=== PATIENT | female | born 1950 | race Caucasian/White ===

== ENCOUNTER → 2016-07-06 | Outpatient (CLI) | payer MEDICARE ==
--- NOTE | 2016-07-08 11:58 | MM ---
Reason for exam: screening (asymptomatic). Last mammogram was performed 7 years and 10 months ago. History: Patient is postmenopausal. Family history of breast cancer in mother at age 73. Excisional biopsy of the left breast. Took estrogen for 6 years 6 months beginning at age 51. Physical Findings: A clinical breast exam by your physician is recommended on an annual basis and results should be correlated with mammographic findings. MG 3D Screening Mammo W/Cad Bilateral CC and MLO view(s) were taken. Prior study comparison: September 18, 2008, bilateral diagnostic digital mammog. March 23, 2004, right breast special view mammogram. The breast tissue is heterogeneously dense. This may lower the sensitivity of mammography. No significant changes when compared with prior studies. ASSESSMENT: Negative, BI-RAD 1 RECOMMENDATION: Routine screening mammogram of both breasts in 1 year.
== END | disposition home or self-care (01) ==
LOC: RADMAMWWP 13:32
PROVIDERS: ATTEND Family Medicine
DX: Z12.31 Encounter for screening mammogram for malignant neoplasm of breast (principal)
CPT/HCPCS: 77063; G0202

== ENCOUNTER 2017-05-28 08:55 | Inpatient (IN) | payer MEDICARE ==
[2017-05-28] MEDS ORDERED: RX INFO: IV CONTRAST WAS GIVEN 1 EACH MISC MISCELLANE PRN (09:35)
[2017-05-28] MEDS ORDERED: SODIUM CHLORIDE 0.9% 1,000 ML IV STA (09:35)
[2017-05-28 09:49] LABS: Basophils % (A) 0 %; Eosinophils # (A) 0.1 k/uL (0-0.7); Eosinophils % (A) 1 %; HCT 39.5 % (34.0-46.0); HGB 13.1 gm/dL (11.4-16.0); Lymphocytes # (A) 0.7 k/uL (1.0-4.8); Lymphocytes % (A) 5 %; MCH 29.2 pg (25.0-35.0); MCHC 33.2 g/dL (31.0-37.0); MCV 88.1 fL (80.0-100.0); Mean Platelet Volume 7.6; Monocytes # (A) 0.6 k/uL (0-1.0); Monocytes % (A) 4 %; Neutrophils # (A) 13.2 k/uL (1.3-7.7); Neutrophils % (A) 90 %; Platelet Count 398 k/uL (150-450); RBC 4.49 m/uL (3.80-5.40); RDW 12.5 % (11.5-15.5); WBC 14.8 k/uL (3.8-10.6)
[2017-05-28 10:01] LABS: Albumin 4.1 g/dL (3.5-5.0); Calcium 9.8 mg/dL (8.4-10.2); Total Bilirubin 0.7 mg/dL (0.2-1.3); Total Protein 7.1 g/dL (6.3-8.2)
--- NOTE | 2017-05-28 10:07 | ED ---
General Adult HPI - General Source: patient, RN notes reviewed Mode of arrival: ambulatory Limitations: no limitations <Charli Cooper - Last Filed: 05/28/17 13:03> <Ridge Amaya - Last Filed: 05/28/17 13:18> - General Chief complaint: Nausea/Vomiting/Diarrhea Stated complaint: diarrhea x 4 days Time Seen by Provider: 05/28/17 09:26 - History of Present Illness Initial comments: Patient 66-year-old female who presents emergency room today with a chief complaint of increased abdominal pain with diarrhea over the last 3 days. Patient states his symptoms started about 3 days ago not feeling well. Feeling somewhat weak while she was at her granddaughter's volWorkableball game. She states that the following day she began having increased diarrhea with some symptoms of nausea. She states that multiple vaulted diarrhea over the last 3 days. Does admit that she sees some blood on the toilet paper when she wipes. Denies any blood mixed into the stool. States very loose. Does admit feeling nauseated but no vomiting. Does admit to abdominal pain greater on the left lower side that seems to come and go in waves. Denies any other complaints or symptoms. Patient denies any recent fever, chills, shortness of breath, chest pain, numbness or tingling, dysuria or hematuria, constipation, headaches or visual changes, or any other complaints. (Charli Cooper) - Related Data Home Medications Medication Instructions Recorded Confirmed Ascomp With Codiene 1 tab PO BID PRN 05/28/17 05/28/17 Citalopram Hydrobromide [CeleXA] 20 mg PO DAILY 05/28/17 05/28/17 Hyoscyamine Sulfate [Levbid] 0.375 mg PO DAILY 05/28/17 05/28/17 Ibuprofen [Advil] 400 mg PO Q8HR PRN 05/28/17 05/28/17 SUMAtriptan SUCCINATE [Imitrex] 100 mg PO DAILY PRN 05/28/17 05/28/17 Simvastatin [Zocor] 40 mg PO HS 05/28/17 05/28/17 Topiramate [Topamax] 50 mg PO HS 05/28/17 05/28/17 amLODIPine BESYLATE/BENAZEPRIL 1 cap PO DAILY 05/28/17 05/28/17 [Lotrel 10-20 mg Capsule] Allergies Allergy/AdvReac Type Severity Reaction Status Date / Time No Known Allergies Allergy Verified 05/28/17 09:04 Review of Systems ROS Other: All systems not noted in ROS Statement are negative. <Charli Cooper - Last Filed: 05/28/17 13:03> ROS Other: All systems not noted in ROS Statement are negative. <Ridge Amaya - Last Filed: 05/28/17 13:18> ROS Statement: Those systems with pertinent positive or pertinent negative responses have been documented in the HPI. Past Medical History Additional Past Medical History / Comment(s): utis urosepsis History of Any Multi-Drug Resistant Organisms: None Reported Past Surgical History: Cholecystectomy Past Psychological History: No Psychological Hx Reported Smoking Status: Never smoker Past Alcohol Use History: None Reported Past Drug Use History: None Reported <Charli Cooper - Last Filed: 05/28/17 13:03> General Exam Limitations: no limitations <KennethCharli - Last Filed: 05/28/17 13:03> <Ridge Amaya - Last Filed: 05/28/17 13:18> - General Exam Comments Initial Comments: General: The patient is awake and alert, in no distress, and does not appear acutely ill. Eye: Pupils are equal, round and reactive to light, extra-ocular movements are intact. No nystagmus. There is normal conjunctiva bilaterally. No signs of icterus. Ears, nose, mouth and throat: There are moist mucous membranes and no oral lesions. Neck: The neck is supple, there is no tenderness or JVD. Cardiovascular: There is a regular rate and rhythm. No murmur, rub or gallop is appreciated. Respiratory: Lungs are clear to auscultation, respirations are non-labored, breath sounds are equal. No wheezes, stridor, rales, or rhonchi. Gastrointestinal: Abdomen soft on palpation per patient does have tenderness both left upper and lower quadrants. No rebound tenderness. Left sided CVA tenderness. No guarding. Musculoskeletal: Normal ROM, no tenderness. Strength 5/5. Sensation intact. Pulses equal bilaterally 2+. Neurological: A&O x 3. CN II-XII intact, There are no obvious motor or sensory deficits. Coordination appears grossly intact. Speech is normal. Skin: Skin is warm and dry and no rashes or lesions are noted. Psychiatric: Cooperative, appropriate mood & affect, normal judgment. (Charli Cooper) Course <Charli Cooper - Last Filed: 05/28/17 13:03> <Ridge Amaya - Last Filed: 05/28/17 13:18> Vital Signs 05/28/17 05/28/17 09:00 12:24 Temperature 98.7 F 99.0 F Pulse Rate 102 H 96 Respiratory 18 18 Rate Blood Pressure 121/94 155/81 O2 Sat by Pulse 96 98 Oximetry - Reevaluation(s) Reevaluation #1: 05/28/17 13:16 PA supervision: I did personally do a [id number] evaluation the patient did discuss the findings with the patient and her . Patient does have some tenderness palpation over the right flank and lower quadrant area some minimal right CVA discomfort she did state pain however started on the left. She does have elevated white blood cell count and low-grade temperature she does have evidence of a UTI as well as hydronephrosis hydroureter any distal right ureter calculus. I did discuss case with Dr. Peña. Patient will be admitted for IV hydration and antibiotics pain control probable ureteral stent placement. (Ridge Amaya) Medical Decision Making - Lab Data Result diagrams: 05/28/17 09:20 05/28/17 09:20 <Charli Cooper - Last Filed: 05/28/17 13:03> - Lab Data Result diagrams: 05/28/17 09:20 05/28/17 09:20 <Ridge Amaya - Last Filed: 05/28/17 13:18> - Medical Decision Making Patient's labs been reviewed shows 14,000 white count. Urinalysis shows evidence for infection. Patient's CT of the abdomen and pelvis shows a somewhat chronically stone on the right side causing moderate hydronephrosis. Case discussed and seen by tenderness is Dr. Amaya who did discuss the case with urology production statistical clerk Dr. Peña who will admit the patient with plans to place a stent tomorrow morning. Patient will be made nothing by mouth after midnight. Patient and family at bedside are aware the plan. (Charli Cooper) - Lab Data Lab Results 05/28/17 05/28/17 05/28/17 Range/Units 09:20 09:20 09:20 WBC 14.8 H (3.8-10.6) k/uL RBC 4.49 (3.80-5.40) m/uL Hgb 13.1 (11.4-16.0) gm/dL Hct 39.5 (34.0-46.0) % MCV 88.1 (80.0-100.0) fL MCH 29.2 (25.0-35.0) pg MCHC 33.2 (31.0-37.0) g/dL RDW 12.5 (11.5-15.5) % Plt Count 398 (150-450) k/uL Neutrophils % 90 % Lymphocytes % 5 % Monocytes % 4 % Eosinophils % 1 % Basophils % 0 % Neutrophils # 13.2 H (1.3-7.7) k/uL Lymphocytes # 0.7 L (1.0-4.8) k/uL Monocytes # 0.6 (0-1.0) k/uL Eosinophils # 0.1 (0-0.7) k/uL Basophils # 0.0 (0-0.2) k/uL Sodium 141 (137-145) mmol/L Potassium 4.0 (3.5-5.1) mmol/L Chloride 104 (98-107) mmol/L Carbon Dioxide 17 L (22-30) mmol/L Anion Gap 20 mmol/L BUN 21 H (7-17) mg/dL Creatinine 1.00 (0.52-1.04) mg/dL Est GFR (CKD-EPI)AfAm 68 (>60 ml/min/1.73 sqM) Est GFR (CKD-EPI)NonAf 59 (>60 ml/min/1.73 sqM) Glucose 115 H (74-99) mg/dL Plasma Lactic Acid Dion 0.9 (0.7-2.0) mmol/L Calcium 9.8 (8.4-10.2) mg/dL Total Bilirubin 0.7 (0.2-1.3) mg/dL AST 24 (14-36) U/L ALT 29 (9-52) U/L Alkaline Phosphatase 90 (38-126) U/L Total Protein 7.1 (6.3-8.2) g/dL Albumin 4.1 (3.5-5.0) g/dL Amylase 37 (30-110) U/L Lipase 81 (23-300) U/L Urine Color Urine Appearance (Clear) Urine pH (5.0-8.0) Ur Specific [place] (1.001-1.035) Urine Protein (Negative) Urine Glucose (UA) (Negative) Urine Ketones (Negative) Urine Blood (Negative) Urine Nitrite (Negative) Urine Bilirubin (Negative) Urine Urobilinogen (<2.0) mg/dL Ur Leukocyte Esterase (Negative) Urine RBC (0-5) /hpf Urine WBC (0-5) /hpf Ur Squamous Epith Cells (0-4) /hpf Urine Bacteria (None) /hpf Urine Mucus (None) /hpf C. difficile (EIA) Intrp (Negative) 05/28/17 05/28/17 Range/Units 09:48 11:17 WBC (3.8-10.6) k/uL RBC (3.80-5.40) m/uL Hgb (11.4-16.0) gm/dL Hct (34.0-46.0) % MCV (80.0-100.0) fL MCH (25.0-35.0) pg MCHC (31.0-37.0) g/dL RDW (11.5-15.5) % Plt Count (150-450) k/uL Neutrophils % % Lymphocytes % % Monocytes % % Eosinophils % % Basophils % % Neutrophils # (1.3-7.7) k/uL Lymphocytes # (1.0-4.8) k/uL Monocytes # (0-1.0) k/uL Eosinophils # (0-0.7) k/uL Basophils # (0-0.2) k/uL Sodium (137-145) mmol/L Potassium (3.5-5.1) mmol/L Chloride (98-107) mmol/L Carbon Dioxide (22-30) mmol/L Anion Gap mmol/L BUN (7-17) mg/dL Creatinine (0.52-1.04) mg/dL Est GFR (CKD-EPI)AfAm (>60 ml/min/1.73 sqM) Est GFR (CKD-EPI)NonAf (>60 ml/min/1.73 sqM) Glucose (74-99) mg/dL Plasma Lactic Acid Dion (0.7-2.0) mmol/L Calcium (8.4-10.2) mg/dL Total Bilirubin (0.2-1.3) mg/dL AST (14-36) U/L ALT (9-52) U/L Alkaline Phosphatase (38-126) U/L Total Protein (6.3-8.2) g/dL Albumin (3.5-5.0) g/dL Amylase (30-110) U/L Lipase (23-300) U/L Urine Color Yellow Urine Appearance Cloudy H (Clear) Urine pH 6.0 (5.0-8.0) Ur Specific [place] 1.030 (1.001-1.035) Urine Protein 1+ H (Negative) Urine Glucose (UA) Negative (Negative) Urine Ketones 1+ H (Negative) Urine Blood Small H (Negative) Urine Nitrite Positive H (Negative) Urine Bilirubin Negative (Negative) Urine Urobilinogen <2.0 (<2.0) mg/dL Ur Leukocyte Esterase Large H (Negative) Urine RBC 4 (0-5) /hpf Urine WBC 143 H (0-5) /hpf Ur Squamous Epith Cells 1 (0-4) /hpf Urine Bacteria Rare H (None) /hpf Urine Mucus Rare H (None) /hpf C. difficile (EIA) Intrp Negative (Negative) Disposition Time of Disposition: 13:05 <Charli Cooper - Last Filed: 05/28/17 13:03> <Ridge Amaya - Last Filed: 05/28/17 13:18> Clinical Impression: Kidney stone, Hydronephrosis, UTI (urinary tract infection), Leukocytosis Disposition: ADMITTED IP TO THIS HOSP Condition: Stable Referrals: Ryan Petit MD [Primary Care Provider] - 1-2 days
--- NOTE | 2017-05-28 10:50 | CT ---
EXAMINATION TYPE: CT abdomen pelvis w con DATE OF EXAM: 05/28/2017 REFERENCE: NONE HISTORY: abdominal pain HISTORY: Upper abdominal pain with diarrhea REFERENCE: NONE CT DLP: 518.6 mGy Automated exposure control for dose reduction was used. TECHNIQUE: Helical acquisition through the abdomen and pelvis was obtained following the oral ingesti on of without Oral Contrast and following intravenous administration of 80 mL of Visipaque 320. The d jackie was reformatted in axial, coronal and sagittal projections. FINDINGS: There is minimal dependent atelectasis in the dependent portions of the lungs. There is no pleural or pericardial fluid. The heart is not enlarged. There is a small hiatal hernia. Within the abdomen, the liver and spleen are normal. The gallbladder is not identified. Both adrenal glands are normal. There is a 3 mm nonobstructing calculus in the anterior middle pole calyx of the left kidney. There i s hydronephrosis and hydroureter on the right. There is a 7.5 mm calculus in the lower right ureter j ust proximal to the trigone of the bladder. There is a 3.1 cm simple appearing cyst in the lower pole of the left kidney. There is a small 9 mm cyst in the lower pole of the right kidney. The pancreas appears unremarkable. There is no significant retroperitoneal, iliac or inguinal adenopathy. The uterus is unremarkable. The ovaries are not visualized with certainty. The bladder is unremarkable. There is extensive diverticulosis of the sigmoid colon with scattered diverticula elsewhere throughou t the left side of the colon and also on the right side of the colon. The appendix is unremarkable. Small bowel loops are normal in caliber. There is no free fluid and no free air. IMPRESSION: 1. MODERATE RIGHT-SIDED HYDRONEPHROSIS WITH A 7.5 MM CALCULUS IN THE DISTAL RIGHT URETER. 2. BILATERAL RENAL CYSTS. 3. SMALL HIATAL HERNIA. 4. UNCOMPLICATED DIVERTICULOSIS OF THE COLON.
[2017-05-28 11:30] LABS: Appearance,Urine Cloudy (Clear); Bacteria,Urine Rare /hpf; Bilirubin,Urine Negative (Negative); Blood,Urine Small (Negative); Color,Urine Yellow; Glucose,Urine (UA) Negative (Negative); Ketones,Urine 1+ (Negative); Leukocyte Esterase,Urine Large (Negative); Mucus,Urine Rare /hpf; Nitrite,Urine Positive (Negative); Protein,Urine 1+ (Negative); RBC,Urine 4 /hpf (0-5); Squamous Epithelial Cell,Urine 1 /hpf (0-4); Urobilinogen,Urine <2.0 mg/dL (<2.0); WBC,Urine 143 /hpf (0-5)
[2017-05-28] MEDS ORDERED: cefTRIAXone IN SWFI 2,000 MG/20 ML SYRINGE IVP STA (12:02)
[2017-05-28] MEDS ORDERED: HYDROcodone/APAP 5-325MG 1 EACH TAB PO PRN (13:02)
[2017-05-28] MEDS ORDERED: NALOXONE 0.4 MG/ML 1 ML VIAL IV PRN (13:02)
[2017-05-28] MEDS ORDERED: ACETAMINOPHEN TAB 325 MG TAB PO PRN (13:02)
[2017-05-28] MEDS ORDERED: SODIUM CHLORIDE 0.9% 1,000 ML IV ONE (13:02)
[2017-05-28] MEDS ORDERED: MORPHINE SULFATE 4 MG/ML SYRINGE IV PRN (13:02)
[2017-05-28] MEDS ORDERED: ONDANSETRON 4 MG/2 ML VIAL IVP PRN (13:02)
[2017-05-28 15:36] VITALS: BMI 22.4
--- NOTE | 2017-05-28 21:51 | P.GSHP ---
History of Present Illness H&P Date: 05/28/17 Chief Complaint: Abdominal pain, diarrhea The patient is a 66-year-old white female who on May 25 began to experience vague symptoms of fatigue, right flank discomfort, and abdominal discomfort. The following day, she began to experience diarrhea, which has persisted. She has failed to improve, so she presented to the emergency room today. A computed tomography scan has shown moderate right hydronephrosis due to a 7.5 mm right distal ureteral calculus. Urinalysis shows evidence of infection. The patient has had one kidney stone in the remote past, which she believes most have passed. She has been treated for UTIs in the past. She has seen Dr. Reese for these conditions. - Constitutional Constitutional: Reports chills, Reports fatigue, Denies fever - Gastrointestinal Gastrointestinal: Reports abdominal pain, Reports diarrhea, Reports nausea, Denies vomiting - Genitourinary (Female) Genitourinary: Denies dysuria, Denies hematuria Past Medical History Past Medical History: Hyperlipidemia, Hypertension Additional Past Medical History / Comment(s): utis urosepsis MIGRAINS History of Any Multi-Drug Resistant Organisms: None Reported Past Surgical History: Cholecystectomy Smoking Status: Never smoker - Past Family History Father Family Medical History: Hyperlipidemia, Hypertension Medications and Allergies Home Medications Medication Instructions Recorded Confirmed Type Ascomp With Codiene 1 tab PO BID PRN 05/28/17 05/28/17 History Citalopram Hydrobromide [CeleXA] 20 mg PO DAILY 05/28/17 05/28/17 History Hyoscyamine Sulfate [Levbid] 0.375 mg PO DAILY 05/28/17 05/28/17 History Ibuprofen [Advil] 400 mg PO Q8HR PRN 05/28/17 05/28/17 History SUMAtriptan SUCCINATE [Imitrex] 100 mg PO DAILY PRN 05/28/17 05/28/17 History Simvastatin [Zocor] 40 mg PO HS 05/28/17 05/28/17 History Topiramate [Topamax] 50 mg PO HS 05/28/17 05/28/17 History amLODIPine BESYLATE/BENAZEPRIL 1 cap PO DAILY 05/28/17 05/28/17 History [Lotrel 10-20 mg Capsule] Allergies Allergy/AdvReac Type Severity Reaction Status Date / Time No Known Allergies Allergy Verified 05/28/17 09:04 Surgical - Exam Vital Signs Temp Pulse Resp BP Pulse Ox 98.7 F 102 H 18 121/94 96 05/28/17 09:00 05/28/17 09:00 05/28/17 09:00 05/28/17 09:00 05/28/17 09:00 - General well developed, well nourished, no distress - Respiratory normal respiratory effort - Abdomen Abdomen: soft, tender (Mild lower abdominal tenderness, bilateral CVA tenderness ), no guarding, no rigid, no rebound, no distended - Psychiatric oriented to time, oriented to person, oriented to place, speech is normal, memory intact Results - Labs 05/28/17 09:20 05/28/17 09:20 Abnormal Lab Results - Last 24 Hours (Table) 05/28/17 05/28/17 05/28/17 Range/Units 09:20 09:20 11:17 WBC 14.8 H (3.8-10.6) k/uL Neutrophils # 13.2 H (1.3-7.7) k/uL Lymphocytes # 0.7 L (1.0-4.8) k/uL Carbon Dioxide 17 L (22-30) mmol/L BUN 21 H (7-17) mg/dL Glucose 115 H (74-99) mg/dL Urine Appearance Cloudy H (Clear) Urine Protein 1+ H (Negative) Urine Ketones 1+ H (Negative) Urine Blood Small H (Negative) Urine Nitrite Positive H (Negative) Ur Leukocyte Esterase Large H (Negative) Urine WBC 143 H (0-5) /hpf Urine Bacteria Rare H (None) /hpf Urine Mucus Rare H (None) /hpf Microbiology - Last 24 Hours (Table) 05/28/17 09:48 Stool Culture - Preliminary Stool Diabetes panel 05/28/17 Range/Units 09:20 Sodium 141 (137-145) mmol/L Potassium 4.0 (3.5-5.1) mmol/L Chloride 104 (98-107) mmol/L Carbon Dioxide 17 L (22-30) mmol/L BUN 21 H (7-17) mg/dL Creatinine 1.00 (0.52-1.04) mg/dL Glucose 115 H (74-99) mg/dL Calcium 9.8 (8.4-10.2) mg/dL AST 24 (14-36) U/L ALT 29 (9-52) U/L Alkaline Phosphatase 90 (38-126) U/L Total Protein 7.1 (6.3-8.2) g/dL Albumin 4.1 (3.5-5.0) g/dL Calcium panel 05/28/17 Range/Units 09:20 Calcium 9.8 (8.4-10.2) mg/dL Albumin 4.1 (3.5-5.0) g/dL Pituitary panel 05/28/17 Range/Units 09:20 Sodium 141 (137-145) mmol/L Potassium 4.0 (3.5-5.1) mmol/L Chloride 104 (98-107) mmol/L Carbon Dioxide 17 L (22-30) mmol/L BUN 21 H (7-17) mg/dL Creatinine 1.00 (0.52-1.04) mg/dL Glucose 115 H (74-99) mg/dL Calcium 9.8 (8.4-10.2) mg/dL Adrenal panel 05/28/17 Range/Units 09:20 Sodium 141 (137-145) mmol/L Potassium 4.0 (3.5-5.1) mmol/L Chloride 104 (98-107) mmol/L Carbon Dioxide 17 L (22-30) mmol/L BUN 21 H (7-17) mg/dL Creatinine 1.00 (0.52-1.04) mg/dL Glucose 115 H (74-99) mg/dL Calcium 9.8 (8.4-10.2) mg/dL Total Bilirubin 0.7 (0.2-1.3) mg/dL AST 24 (14-36) U/L ALT 29 (9-52) U/L Alkaline Phosphatase 90 (38-126) U/L Total Protein 7.1 (6.3-8.2) g/dL Albumin 4.1 (3.5-5.0) g/dL - Imaging CT scan - abdomen: report reviewed, image reviewed Assessment and Plan (1) Hydronephrosis with urinary obstruction due to ureteral calculus Current Visit: Yes Status: Acute Priority: High Code(s): N13.2 - HYDRONEPHROSIS WITH RENAL AND URETERAL CALCULOUS OBSTRUCTION SNOMED Code(s): 280965581 (2) UTI (urinary tract infection) Current Visit: Yes Status: Acute Priority: High Code(s): N39.0 - URINARY TRACT INFECTION, SITE NOT SPECIFIED SNOMED Code(s): 11067334 Plan: The patient is a 66-year-old woman whose primary complaints or diarrhea and abdominal pain. Urinalysis shows evidence of a UTI, and her WBC count is elevated. She has an obstructing right distal ureteral calculus. She is receiving Rocephin, pending urine and stool cultures. I have suggested she undergo cystoscopy with right ureteral stent insertion for relief of ureteral obstruction tomorrow. The rationale for the procedure was discussed, as were the potential risks. These include anesthesia, ureteral injury, and inability to successfully place the stent. The possible need for percutaneous nephrostomy tube was discussed. She will be treated with Imodium for her diarrhea. Time with Patient: Greater than 30
[2017-05-29 07:31] LABS: Albumin 3.3 g/dL (3.5-5.0); Calcium 8.8 mg/dL (8.4-10.2); Total Bilirubin 0.4 mg/dL (0.2-1.3); Total Protein 5.9 g/dL (6.3-8.2)
[2017-05-29 07:43] LABS: Potassium 3.3 mmol/L (3.5-5.1)
[2017-05-29 07:52] LABS: Basophils % (A) 0 %; Eosinophils # (A) 0.1 k/uL (0-0.7); Eosinophils % (A) 1 %; HCT 36.3 % (34.0-46.0); HGB 12.4 gm/dL (11.4-16.0); Lymphocytes # (A) 0.7 k/uL (1.0-4.8); Lymphocytes % (A) 9 %; MCH 29.9 pg (25.0-35.0); MCHC 34.1 g/dL (31.0-37.0); MCV 87.6 fL (80.0-100.0); Mean Platelet Volume 6.7; Monocytes # (A) 0.6 k/uL (0-1.0); Monocytes % (A) 7 %; Neutrophils # (A) 6.5 k/uL (1.3-7.7); Neutrophils % (A) 80 %; Platelet Count 374 k/uL (150-450); RBC 4.14 m/uL (3.80-5.40); RDW 12.1 % (11.5-15.5); WBC 8.2 k/uL (3.8-10.6)
[2017-05-29] MEDS: cefTRIAXone IN SWFI 1,000 MG/10 ML SYRINGE IVP SCH (09:12)
[2017-05-29] MEDS ORDERED: Potassium Replacement Protocol 1 EACH MISC MISCELLANE PRN (10:49)
[2017-05-29] MEDS ORDERED: IV FLUID CONTINUATION 1,000 ML IV ONE (11:39)
[2017-05-29] MEDS ORDERED: fentaNYL (PF) 50 MCG/ML 2 ML AMP ONE (12:04)
[2017-05-29] MEDS ORDERED: MIDAZOLAM 2 MG/2 ML VIAL ONE (12:04)
[2017-05-29] MEDS ORDERED: PROPOFOL 10 MG/ML 20 ML VIAL IV ONE (12:04)
[2017-05-29] MEDS ORDERED: LIDOCAINE 1% INJ 10MG/ML (20 ML MDV) ONE (12:04)
[2017-05-29] MEDS ORDERED: ePHEDrine SULFATE/0.9% NACL/PF 50 MG/5 ML SYRINGE IV ONE (12:04)
[2017-05-29] MEDS ORDERED: SUCCINYLCHOLINE CHLORIDE 100 MG/5 ML SYR IV ONE (12:04)
--- NOTE | 2017-05-29 12:31 | P.OP ---
Date of Procedure: 05/29/17 Preoperative Diagnosis: Right Hydronephrosis Secondary to Right Ureteral Calculus Postoperative Diagnosis: Same Procedure(s) Performed: Cystoscopy, Right Ureteral Stent Insertion Anesthesia: KYMBERLYA Surgeon: Ash Peña Estimated Blood Loss (ml): 0 IV fluids (ml): 600 Pathology: none sent Condition: stable Disposition: PACU Indications for Procedure: The patient is a 66-year-old white female admitted with right flank and abdominal pain, associated with nausea and diarrhea. Urinalysis shows evidence of infection, for which she is receiving IV antibiotics. A computed tomography scan shows moderate right hydronephrosis due to a 7.5 mm right distal ureteral calculus. She now comes for stent insertion. Operative Findings: Right distal ureteral calculus Description of Procedure: The patient was taken to the operating room and placed in the dorsolithotomy position, with legs supported in Theron stirrups. The external genitalia was prepped and draped sterilely. The 30 lens was used to introduce the 19-Telugu Stortz cystoscopic sheath through the urethra and into the bladder under direct vision. The bladder was examined in its entirety. Both ureteral orifices were normal anatomic location and configuration, and clear urine effluxed from both. No tumors or foreign bodies were seen. There was evidence of patchy erythema , consistent with cystitis. A 0.035 inch Glidewire was passed through the cystoscope. The right ureteral orifice was cannulated, and the Glidewire was slowly advanced beyond the calculus and up to the right renal pelvis. A 24 cm, 6-Telugu double-J ureteral stent was placed over the wire. Proper stent positioning was verified fluoroscopically and endoscopically. The bladder was emptied and the cystoscope removed. The patient tolerated the procedure well and was taken to the recovery room in stable condition.
--- NOTE | 2017-05-29 13:51 | FL ---
Fluoroscopy HISTORY: Right ureteral stent placement 17 seconds fluoroscopy time supplied to the referring clinician. 1 intraoperative C-arm images docum ent the procedure. See dictated report from urology
[2017-05-29] MEDS: POTASSIUM CHLORIDE 10 MEQ in SODIUM CHLORIDE 0.9% 100 ML IVPB SCH ×2 (15:54→17:21)
[2017-05-30] MEDS: SODIUM CHLORIDE 0.9% 1,000 ML IV SCH ×2 (00:25→15:38)
--- NOTE | 2017-05-30 06:59 | CONS ---
CONSULTATION A 66-year-old white female with diarrhea over the past 3-4 days. She is status post surgery today for ureteral stent placement for UPJ obstruction. Having no chest pain or shortness of breath. REVIEW OF SYSTEMS: Fourteen point review of systems negative except for mentioned in HPI. VITAL SIGNS: Stable, afebrile. CARDIOVASCULAR: S1, S2. LUNGS: Clear. GI: Has increased bowel sounds x4. No mass or organomegaly. HEMATOLOGY: Negative Homans. PSYCH: Fair mood and affect. VASCULAR: Normal dorsalis pedis posterior tibial and radial pulses. ASSESSMENT: 1. Ureteral obstruction, status post ureteral stent placement. 2. History of colitis with acute diarrhea. 3. Hyperactive bowel sounds suspicious for colitis. Give Questran for diarrhea. Continue with current treatments. 4. Hypokalemia, replace electrolytes. MMODL / IJN: [id number] /
[2017-05-30] MEDS: CHOLESTYRAMINE (WITH SUGAR) 4 GM PACKET PO SCH ×2 (08:44→17:45)
[2017-05-30] MEDS: LOPERAMIDE 2 MG CAP PO PRN ×2 (08:44→15:36)
[2017-05-30] MEDS: cefTRIAXone IN SWFI 1,000 MG/10 ML SYRINGE IVP SCH (08:44)
[2017-05-30] MEDS ORDERED: MORPHINE ORAL SOLN 10 MG/5 ML CUP PO PRN (11:36)
[2017-05-30 14:42] VITALS: RESP 16
--- NOTE | 2017-05-30 18:05 | P.PN ---
Progress Note - Text Progress Note Date: 05/30/17 Mrs. Keita states that her right flank pain is improved. She is afebrile with stable vital signs. Her diarrhea has persisted. This stool culture was negative. The urine culture shows greater than 100,000 gram-negative bacilli. She will continue to receive Rocephin, pending the final urine culture result. Discharge tomorrow is anticipated.
[2017-05-31] MEDS: SODIUM CHLORIDE 0.9% 1,000 ML IV SCH (03:26)
[2017-05-31 07:09] VITALS: BP 177/89; PULSE 61; TEMP 97.2
[2017-05-31] MEDS ORDERED: SUMAtriptan SUCCINATE 50 MG TAB PO PRN (07:25)
--- NOTE | 2017-05-31 08:23 | P.DS ---
Providers Date of admission: 05/28/17 13:02 Attending physician: Ash Peña Consults: 05/28/17 21:53 Consult Physician Routine Consulting Provider: Ryan Petit Reason/Comments: Medical management Do you want consulting provider notified?: Yes, Notify in am Primary care physician: Ryan Petit [facility] Course: The patient was admitted to the hospital 05/28/2017 for a right ureteral stone, urinary tract infection with sepsis. She underwent placement of a double-J catheter on 319. She wasn't ready for discharge home on 05/30. Today she is afebrile and feeling well. She is ready for discharge home. She'll be discharged home care of family regular diet. She'll be given a prescription of Keflex pending the final culture. We will make arrangements for a stent and stone removal in about 10 days. This has been discussed with the patient. Postoperative instructions have been given. Condition upon discharge is good. Patient Condition at Discharge: Good Plan - Discharge Summary Discharge Rx Participant: No New Discharge Prescriptions: No Action SUMAtriptan SUCCINATE [Imitrex] 100 mg PO DAILY PRN PRN Reason: Migraine Headache Ibuprofen [Advil] 400 mg PO Q8HR PRN PRN Reason: Pain Hyoscyamine Sulfate [Levbid] 0.375 mg PO DAILY RX: Citalopram Hydrobromide [CeleXA] 20 mg PO DAILY Ascomp With Codiene 1 tab PO BID PRN PRN Reason: Migraine Headache Simvastatin [Zocor] 40 mg PO HS amLODIPine BESYLATE/BENAZEPRIL [Lotrel 10-20 mg Capsule] 1 cap PO DAILY Topiramate [Topamax] 50 mg PO HS Discharge Medication List Ascomp With Codiene 1 tab PO BID PRN 05/28/17 [History] Hyoscyamine Sulfate [Levbid] 0.375 mg PO DAILY 05/28/17 [History] Ibuprofen [Advil] 400 mg PO Q8HR PRN 05/28/17 [History] RX: Citalopram Hydrobromide [CeleXA] 20 mg PO DAILY 05/28/17 [History] SUMAtriptan SUCCINATE [Imitrex] 100 mg PO DAILY PRN 05/28/17 [History] Simvastatin [Zocor] 40 mg PO HS 05/28/17 [History] Topiramate [Topamax] 50 mg PO HS 05/28/17 [History] amLODIPine BESYLATE/BENAZEPRIL [Lotrel 10-20 mg Capsule] 1 cap PO DAILY [History] Follow up Appointment(s)/Referral(s): Ryan Petit MD [Primary Care Provider] - 1-2 days Lexa Reese MD [STAFF PHYSICIAN] - 1 Week Activity/Diet/Wound Care/Special Instructions: Drink plenty of fluids.
[2017-05-31 08:28] LABS: ALT 30 U/L (9-52); AST 17 U/L (14-36); Albumin 3.3 g/dL (3.5-5.0); Alkaline Phosphatase 61 U/L (38-126); Anion Gap 10 mmol/L; Blood Urea Nitrogen 9 mg/dL (7-17); Calcium 9.3 mg/dL (8.4-10.2); Carbon Dioxide 26 mmol/L (22-30); Chloride 107 mmol/L (98-107); Glucose 105 mg/dL (74-99); Potassium 3.1 mmol/L (3.5-5.1); Sodium 143 mmol/L (137-145); Total Bilirubin 0.3 mg/dL (0.2-1.3); Total Protein 5.9 g/dL (6.3-8.2)
[2017-05-31] MEDS ORDERED: LISINOPRIL 20 MG TAB PO SCH (09:00)
[2017-05-31] MEDS ORDERED: amLODIPine 10 MG TAB PO SCH (09:00)
[2017-05-31] MEDS ORDERED: AMLODIPINE BESYLATE PO SCH (09:00)
[2017-05-31] MEDS ORDERED: BENAZEPRIL PO SCH (09:00)
[2017-05-31] MEDS ORDERED: CITALOPRAM HYDROBROMIDE 20 MG TAB PO SCH (09:00)
[2017-05-31] MEDS: cefTRIAXone IN SWFI 1,000 MG/10 ML SYRINGE IVP SCH (09:33)
[2017-05-31] MEDS: CHOLESTYRAMINE (WITH SUGAR) 4 GM PACKET PO SCH (09:34)
--- NOTE | 2017-05-31 13:06 | PN ---
PROGRESS NOTE DATE OF SERVICE: 05/30/2017 SUBJECTIVE: A 66-year-old white female admitted with ureteral stone obstruction, status post stent placement. Is having some chronic diarrhea, possibly some colitis. She wants something for diarrhea. I ordered are some Questran 4 mg packs b.i.d. GI fuller, her abdomen is decreased bowel sounds compared to yesterday were they are hyperactive. CARDIOVASCULAR: S1, S2. LUNGS: Clear. GENERAL: Patient states she feels better than yesterday. ASSESSMENT: 1. Hypertension, stable. 2. Dyslipidemia, stable. 3. Migraines, stable. Questran will be given, possible discharge home. Follow up with outpatient treatment for irritable bowel syndrome or colitis. I will see her in my office in one to two days on discharge. MMODL / IJN: [id number] /
[2017-05-31] MEDS ORDERED: ATORVASTATIN 20 MG TAB PO SCH (21:00)
[2017-05-31] MEDS ORDERED: TOPIRAMATE 25 MG TAB PO SCH (21:00)
== END 2017-05-31 15:18 | disposition home or self-care (01) | DRG 694 ==
LOC: EC 08:55 → 3SUR 13:02
PROVIDERS: ADMIT Urology; ATTEND Urology
PROC: 0T768DZ Dilation of Right Ureter with Intraluminal Device, Via Natural or Artificial Opening Endoscopic (ICD-10-PCS; principal; 2017-05-28)
DX: N13.2 Hydronephrosis with renal and ureteral calculous obstruction (principal); N39.0 Urinary tract infection, site not specified; E78.5 Hyperlipidemia, unspecified; E87.6 Hypokalemia; G43.909 Migraine, unspecified, not intractable, without status migrainosus; I10 Essential (primary) hypertension; K52.9 Noninfective gastroenteritis and colitis, unspecified; Z82.49 Family history of ischemic heart disease and other diseases of the circulatory system; Z87.440 Personal history of urinary (tract) infections; Z87.442 Personal history of urinary calculi; Z79.899 Other long term (current) drug therapy
CPT/HCPCS: 36415; 74177; 80053; 81001; 82150; 83605; 83690; 84132; 85025; 87045; 87046; 87077; 87086; 87186; 87324; 87493; 96361; 96374; 99285

== ENCOUNTER → 2019-07-13 | Outpatient (CLI) | payer MEDICARE | END | disposition home or self-care (01) | LOC: LABWHC1 08:15 | PROVIDERS: ATTEND Orthopaedic Surgery | DX: U07.1 COVID-19 (principal) | CPT/HCPCS: 87635 ==

== ENCOUNTER → 2019-07-15 | Day surgery (SDC) | payer MEDICARE ==
[2019-07-12 12:50] VITALS: BMI 24.1
[~2019-07-15] MED LIST: DEXAMETHASONE SOD PHOSPHATE 10 MG/ML 1 ML VIAL IV ONE; HYDROmorphone 0.5 MG/0.5 ML SYRINGE IVP PRN; KETAMINE 10 MG/ML 20 ML VIAL ONE; LACTATED RINGERS 1,000 ML IV SCH; LIDOCAINE 1% (10MG/ML) FOR IV START INTRADERMA PRN; LIDOCAINE 1% INJ 10MG/ML (20 ML MDV) ONE; MIDAZOLAM 2 MG/2 ML VIAL IV PRN; MIDAZOLAM 2 MG/2 ML VIAL ONE; ONDANSETRON 4 MG/2 ML VIAL IVP ONE; PROPOFOL 10 MG/ML 20 ML VIAL IV ONE; fentaNYL (PF) 50 MCG/ML 2 ML AMP IVP PRN; fentaNYL (PF) 50 MCG/ML 2 ML AMP ONE
[2019-07-15 10:47] VITALS: TEMP 98.2
--- NOTE | 2019-07-15 15:36 | FL ---
Fluoroscopy History: R index finger pinning 20 seconds of fluoroscopic time and 4 films are submitted for R index finger pinning.
[2019-07-15 16:22] VITALS: BP 153/79; PULSE 97; RESP 17
--- NOTE | 2019-07-17 14:53 | P.OP ---
Date of Procedure: 07/15/19 Preoperative Diagnosis: 1. Displaced intra-articular right small finger proximal phalanx head fracture Postoperative Diagnosis: 1. Displaced intra-articular right small finger proximal phalanx head fracture 2. Right small finger proximal interphalangeal (PIP) joint contracture Procedure(s) Performed: 1. Closed reduction and percutaneous pinning of displaced intra-articular right small finger proximal phalanx head fracture 2. Manipulation under anesthesia right small finger proximal interphalangeal (PIP) joint Implants: 0.035 K wires (two), 0.028 K wire (one) Anesthesia: MAC, local Surgeon: Dajuan Dutton Estimated Blood Loss (ml): 1 Condition: stable Disposition: same day Indications for Procedure: The patient is a very pleasant 68-year-old female who sustained a displaced right small finger proximal phalanx fracture after falling over a hamper at home. Treatment options (and their associated risks and benefits) were discussed in the office, including pin tract infections, stiffness/contractures and adhesions. Based on the fracture pattern and amount of displacement, surgical stabilization was recommended. The patient expressed understanding and agreed with operative intervention. In preop, additional questions were addressed and the patient wished to proceed with surgery. Consent forms were signed. The surgical site was confirmed and marked preoperatively. Description of Procedure: After consent was obtained, a digital block was performed in preop: using aseptic technique, lidocaine with epinephrine around the planned surgical field. After an appropriate interval of time, the patient was brought to the OR and positioned supine with the operative limb on a hand table. The right upper extremity was then prepped and draped in standard, sterile fashion. A time-out was performed, confirming patient identifiers, the operative side, the site and the procedure to be performed: all team members expressed agreement. Loupe magnification was utilized throughout the case for optimum visualization. The fracture was evaluated with intraoperative fluoroscopy. There was a transverse fracture across the neck with a head split component, creating two separate articular fragments. Marked flexion and ulnar angulation deformity was present. A manual reduction was performed which yielded improved alignment on both views but with some residual articular incongruity. A pointed reduction clamp was applied percutaneously and used to manipulate the condylar fragments. Once satisfactory alignment was achieved, a 0.035 K wire was introduced into the ulnar head fragment and advanced retrograde to the base of the proximal phalanx. Wire position was confirmed on orthogonal images. A second wire was inserted in a similar fashion from the opposite side to create a crossed wire configuration. A 0.025 K wire was inserted transversely to provide additional fixation of the articular fragments. Final x-rays were obtained, confirming fracture reduction and implant positions. The fracture was stressed under live fluoroscopy no motion was appreciated at the fracture site. Passive motion of the PIP joint demonstrated a smooth articulation without crepitus or instability. However, the joint was noted to be quite stiff (the fracture was over a week old) with less than 60 of passive motion. The manipulation under anesthesia was performed. With the fracture site manually stabilized, the PIP joint was slowly manipulated, gaining improved motion in both flexion and extension. Full extension was achieved with about 90 of passive flexion. Good hemostasis was maintained throughout the case without the need for a tourniquet. The pins were cut and covered with Jrgen balls. The finger was cleaned with normal saline. A soft, sterile dressing was applied, followed by a dorsal AlumaFoam splint to stabilize the small finger in the intrinsic plus position with the PIP joint slightly flexed. All sponge, needle and instrument counts were correct at the end of the case. The patient tolerated the procedure well and was transferred to recovery in stable condition.
== END | disposition home or self-care (01) ==
LOC: OR 10:23
PROVIDERS: ATTEND Orthopaedic Surgery
DX: S62.616A Displaced fracture of proximal phalanx of right little finger, initial encounter for closed fracture (principal); M24.541 Contracture, right hand; I10 Essential (primary) hypertension; E78.5 Hyperlipidemia, unspecified; G43.909 Migraine, unspecified, not intractable, without status migrainosus; K21.9 Gastro-esophageal reflux disease without esophagitis; Z79.899 Other long term (current) drug therapy; Z90.49 Acquired absence of other specified parts of digestive tract; Z98.51 Tubal ligation status; Z98.890 Other specified postprocedural states; Z82.49 Family history of ischemic heart disease and other diseases of the circulatory system; W01.0XXA Fall on same level from slipping, tripping and stumbling without subsequent striking against object, initial encounter; Y92.018 Other place in single-family (private) house as the place of occurrence of the external cause
CPT/HCPCS: 73140; 26727; 26340; C1713 ×2; J2250; J1100; J0690; J2405; J2001; J3010; J2704